=== PATIENT | female | born 1965 | race Caucasian/White ===

== ENCOUNTER 2017-10-22 05:49 | Inpatient (IN) | payer BC, MEDICAID ==
[~2017-10-22 05:49] MED LIST: Buffered Lidocaine 0.9% SYRIN* 5 ML/SYR SYRINGE INTRADERM ONE
[2017-10-22] MEDS ORDERED: Famotidine IV* 10 MG/ML 2 ML (20 mg) IV ONE (06:00)
[2017-10-22] MEDS ORDERED: Dexamethasone IV* 4 MG/ML 1 ML (4 MG) IV SLOW PU ONE (06:00)
[2017-10-22] MEDS ORDERED: Buffered Lidocaine 0.9% SYRIN* 5 ML/SYR SYRINGE ONE (06:12)
[2017-10-22] MEDS ORDERED: Famotidine IV* 10 MG/ML 2 ML (20 mg) ONE (06:12)
[2017-10-22] MEDS ORDERED: Dexamethasone IV* 4 MG/ML 1 ML (4 MG) ONE (06:12)
[2017-10-22] MEDS ORDERED: ceFAZolin 2 GM PREMIX (*) 2 GM/50 ML BAG IVPB ONE (06:12)
[2017-10-22] MEDS ORDERED: Thrombin 5,000 UNITS* 1 APPLIC KIT - topical use - TOPICAL ONE (07:10)
[2017-10-22] MEDS ORDERED: Bacitracin IV* 50,000 UNITS INJ ONE (07:10)
[2017-10-22] MEDS ORDERED: Lidocain 1% EPI 1:100,000 * 30 ML MDV ONE (07:10)
[2017-10-22] MEDS ORDERED: Levalbuterol 0.63MG/3ML NEB* UNIT OF USE INH ONE (07:24)
[2017-10-22] MEDS ORDERED: Levalbuterol 0.63MG/3ML NEB* UNIT OF USE INH PRN (07:24)
[2017-10-22] MEDS ORDERED: fentaNYL* 50 MCG/ML 5 ML VIAL (250 MCG VIAL) ONE (07:28)
[2017-10-22] MEDS ORDERED: Midazolam* 1 MG/ML 5 ML VIAL (5 MG) ONE (07:28)
[2017-10-22] MEDS ORDERED: Atracurium* 10 MG/ML 10 ML VIAL ONE (07:28)
[2017-10-22] MEDS ORDERED: Ondansetron INJ* 2 MG/ML VIAL ONE (07:29)
[2017-10-22] MEDS ORDERED: Propofol* 10 MG/ML 20 ML BTL IV PUSH ONE (07:29)
[2017-10-22] MEDS ORDERED: Lidocaine 2% PF * 5 ML VIAL ONE (07:29)
[2017-10-22] MEDS ORDERED: fentaNYL* 50 MCG/ML 2 ML VIAL (100 MCG VIAL) ONE (08:07)
[2017-10-22] MEDS ORDERED: EPHEDrine (Pressors)* 50 MG/ML VIAL ONE (08:14)
[2017-10-22] MEDS ORDERED: DiMENhydriNATE IV* 50 MG/ML VIAL IV PUSH PRN (08:15)
[2017-10-22] MEDS ORDERED: Naloxone* 0.4 MG/ML 1 ML VIAL IV PRN (08:15)
[2017-10-22] MEDS ORDERED: Ondansetron INJ* 2 MG/ML VIAL IV PRN (08:15)
[2017-10-22] MEDS ORDERED: HYDROmorphone INJ* 0.5 MG/0.5 ML SYRINGE IV PRN (08:15)
[2017-10-22] MEDS ORDERED: fentaNYL* 50 MCG/ML 2 ML VIAL (100 MCG VIAL) IV PRN (08:15)
[2017-10-22] MEDS ORDERED: Acetaminophen TAB* 325 MG PO PRN (09:19)
[2017-10-22] MEDS ORDERED: Magnesium Hydroxide LIQ* 30 ML UDC PO PRN (09:19)
[2017-10-22] MEDS ORDERED: Insulin LISPRO* 1 UNITS UNIT SUBCUT ONE ×2 (09:51→09:55)
[2017-10-22] MEDS ORDERED: Dextrose 50% Syringe 50 ML* 25 GM/50 ML SYRINGE IV PUSH PRN (09:51)
--- NOTE | 2017-10-22 10:58 | RAD ---
HISTORY: ANTERIOR CERVICAL DISCECTOMY AND FUSION WITH INSTR COMPARISONS: MRI dated July 15, 2017 VIEWS: 2, portable lateral intraoperative views of the cervical spine at 8:00 AM and 8:15 AM for localization during spinal surgery FINDINGS: Limited portable lateral views of the cervical spine are submitted for review. The first film at 8:00 AM demonstrates a metallic probe opposite of C5-C6 counting from C2. A second film at 8:13 AM demonstrates a needle within the C3-C4 intervertebral disc space. IMPRESSION: LIMITED PORTABLE VIEWS OF THE CERVICAL SPINE FOR LOCALIZATION DURING SPINAL SURGERY.
[2017-10-22] MEDS: HYDROcodone/ACETAMIN 5-325 MG* 1 TAB PO PRN ×2 (13:13→17:35)
[2017-10-22] MEDS: Insulin LISPRO* 1 UNITS UNIT SUBCUT SCH ×3 (13:14→21:00)
[2017-10-22] MEDS: Ezetimibe TAB* 10 MG PO SCH (17:34)
[2017-10-22] MEDS: Atorvastatin* 40 MG TAB PO SCH (17:34)
[2017-10-22] MEDS ORDERED: Insulin GLARGINE(*) 1 UNITS UNIT SUBCUT SCH ×2 (21:00)
[2017-10-22] MEDS: Spironolactone TAB* 25 MG PO SCH (21:03)
--- NOTE | 2017-10-22 21:44 | CONS ---
CONSULTATION REPORT: DATE OF CONSULT: 10/22/17 PROVIDER: Matty Osullivan NP ATTENDING PHYSICIAN: Dr. Navarrete (report dictated by Matty Osullivan NP). REFERRING PHYSICIAN: Dr. Mattson. PRIMARY CARE PROVIDER: Dr. Latanya Jarvis. REASON FOR CONSULT: Co-medical management. HISTORY OF PRESENT ILLNESS: Ms. Chester is a 52-year-old female who underwent elective anterior cervical diskectomy and fusion at C5-C6 today with Dr. Mattson secondary to radiculopathy. Hospital Medicine was asked to co-medical manage. The patient was seen and evaluated at her bedside and which she is sitting up in bed, alert and oriented x3, in no acute distress, talking on the telephone. She reports that she is a little sore from the surgery, but otherwise she is doing well and has very little pain. She denies difficulty swallowing. No shortness of breath, chest pain. Denies nausea, vomiting. Reports good appetite. Overall, she feels that she is doing well postoperatively. PAST MEDICAL HISTORY: Insulin-dependent type 2 diabetes; hypertension; COPD; sleep apnea; anxiety; history of ovarian cancer, status post hysterectomy; degenerative disk disease; hypothyroidism; hyperlipidemia; history of coronary artery disease. CURRENT MEDICATIONS: 1. Acetaminophen 650 mg p.o. q.4 hours p.r.n. 2. Lipitor 40 mg p.o. q.p.m. 3. Zetia 10 mg p.o. q.p.m. 4. [place] 5/325 mg 2 tabs p.o. q.4 hours p.r.n. 5. Lispro sliding scale a.c. and h.s. 6. LR 75 mL an hour IV. 7. Synthroid 75 mcg p.o. daily. 8. Milk of magnesia 30 mL p.o. daily p.r.n. 9. Dulera 200/5 MDI 2 puffs INH q.a.m. 10. Bystolic 10 mg p.o. q.a.m. 11. Zoloft 200 mg p.o. q.a.m. 12. Aldactone 100 mg p.o. b.i.d. ALLERGIES: COCONUT, SULFA ANTIBIOTICS. FAMILY HISTORY: Reviewed and noncontributory. SOCIAL HISTORY: The patient denies tobacco or alcohol use. She lists Jay Chester, her , as her healthcare proxy, . She lives with her in their own home. REVIEW OF SYSTEMS: A 14-point review of systems was performed. All the pertinent positives and negatives are mentioned in the history of present illness. Otherwise are negative. PHYSICAL EXAM: Vital Signs: Temperature 97.1, heart rate 92, respirations 18, pulse oximetry 97% on room air, blood pressure 135/78. General Appearance: A 52- year-old obese female, sitting up in bed, alert and oriented x3, in no acute distress. HEENT: Head is normocephalic and atraumatic. Pupils are equal and reactive to light. Oropharynx is clear. Moist mucous membranes. Neck is supple. The patient has an anterior neck clean, dry and intact dressing. No noted drainage, erythema. Mild tenderness around the incision site. Soft. Cardiac: S1, S2. Regular rate and rhythm. No murmur, rub, or gallop appreciated. No lower extremity edema noted. Lungs are clear to auscultation bilaterally with good aeration throughout. Abdomen: Soft, nontender, nondistended, obese. Normal bowel sounds throughout. Extremities: Moves all extremities. No clubbing, cyanosis, or edema. Neuro: Cranial nerves II through XII are grossly intact. No noted focal deficits. ASSESSMENT AND PLAN: Ms. Chester is a 52-year-old female with a past medical history of insulin-dependent type 2 diabetes, hypertension, obesity, hyperlipidemia, hypothyroidism, sleep apnea, chronic obstructive pulmonary disease, anxiety, who underwent an elective anterior cervical diskectomy and fusion today with Dr. Mattson. [facility] was asked to co-medical manage. 1. Anterior cervical diskectomy and fusion. Disposition per neurosurgical team. The patient appears to be doing well postoperatively at this time. The patient had a successful surgery without any complications. Pain management. Per the patient, she thinks she may go home tomorrow. 2. Insulin-dependent type 2 diabetes. The patient's blood sugars are quite high in the 200 and 300 range. She has been started on a lispro sliding scale. We will add on long acting insulin as she takes 70 units q.p.m. of Levemir. We will cut her to 35 units postop day 0 and we will most likely start her back on her full home dosage tomorrow. 3. Chronic obstructive pulmonary disease, appears to be stable without any exacerbation. Continue Advair. 4. Hypertension, controlled. Continue home medications, spironolactone and Bystolic. 5. Hyperlipidemia. Continue statin and Zetia. 6. Hypothyroidism. Continue Synthroid. 7. History of coronary artery disease. Asymptomatic at this time. Continue to hold aspirin and Plavix, resuming when cleared by Neurosurgery. 8. DVT prophylaxis: SCDs. 9. Code status: Full code. 10. Hospital status: Inpatient. TIME SPENT: Approximately 45 minutes were spent on this consultation. MATTY OSLULIVAN, SAFETY BELT INSTALLER [id number]/[facility] #: [id number] MAURICE
[2017-10-23] MEDS: Levothyroxine TAB* 75 MCG TAB PO SCH (05:55)
--- NOTE | 2017-10-23 07:27 | PN ---
Progress Note - Progress Note Date of Service: 10/23/17 SOAP: Subjective: []Doing well Pre op arm pain improving Minimal output from drain Objective: []Neck soft Neuro intact Assessment: []Satis post op course Plan: []D/C today D/C Instructions given
[2017-10-23] MEDS: Sertraline* 100 MG TAB PO SCH (08:51)
[2017-10-23] MEDS: Spironolactone TAB* 25 MG PO SCH ×2 (08:52→22:06)
[2017-10-23] MEDS: NEBIVOLOL 2.5 MG PO SCH ×2 (08:52→09:09)
[2017-10-23] MEDS: Insulin LISPRO* 1 UNITS UNIT SUBCUT SCH ×4 (08:52→22:11)
[2017-10-23] MEDS: Mometasone/Formoter 200/5 MDI INH SCH (09:09)
--- NOTE | 2017-10-23 09:56 | RAD ---
Indication: Postoperative bleeding, status post fusion of C5-6. CT of the cervical spine was obtained in the axial plane. Sagittal and coronal reconstructed images were obtained. The skull base demonstrates no fracture. There has been fusion of C5-6 with anterior plate and intervertebral disc spacer. There is spinal stenosis at C5-6. Bilateral foraminal stenosis due to uncovertebral joint hypertrophy is noted, worse on the right than on the left. A drainage catheter appears in place. No evidence of perivertebral hematoma is noted. Disc space narrowing at C2-3 is noted. Spondylitic ridge is noted at C2-3. At C7-T1, no disc protrusion is noted. IMPRESSION: Postoperative changes at C5-6 with anterior plate and intervertebral disc spacer. Persistent spinal stenosis is noted at C5-6. This is due to osteophyte formation. No evidence of paravertebral hematoma is noted.
[2017-10-23 10:15] LABS: ABS Basophils 0.2 10^3/ul (0-0.2); ABS Eosinophils 0.1 10^3/ul (0-0.6); ABS Lymphocytes 3.4 10^3/ul (1.0-4.8); ABS Monocytes 0.6 10^3/ul (0-0.8); ABS Neutrophils 14.2 10^3/ul (1.5-7.7); ABS Nucleated RBC 0 10^3/ul; Eosinophil % 0.3 % (0-6); Hematocrit 41 % (35-47); Hemoglobin 13.3 g/dl (12.0-16.0); Lymphocyte % 18.3 % (25-47); Mean Corpuscular HGB Conc 33 g/dl (31-36); Mean Corpuscular Hemoglobin 29 pg (27-31); Mean Corpuscular Volume 90 fL (80-97); Mean Platelet Volume 7.4 um3 (7.4-10.4); Nucleated Red Blood Cells % 0; Platelet Count 391 10^3/ul (150-450); Red Blood Count 4.52 10^6/ul (4.00-5.40); Red Cell Distribution Width 16 % (10.5-15); White Blood Count 18.3 10^3/ul (3.5-10.8)
--- NOTE | 2017-10-23 12:04 | PN ---
Progress Note - Progress Note Date of Service: 10/23/17 SOAP: Subjective: [S/p ACD F C5-6, POD #1. Feeling well. Preop left thumb numbness improving. Neck pain controlled with PO pain medications. Attempted to dc drain this morning. Upon removal of dressing, large blood clot present at incision and active bleeding from incision site. Most steri strips removed due to saturation with blood. Dressing replaced. Rechecked wound at 1200, dressing again with blood and incision bleeding. Wound drain left in place. Patient ambulating well. Eating and drinking without difficulty. Denies chills, headache, lightheadedness. ] Objective: [ Vital Signs: Temp Pulse Resp BP Pulse Ox 98.1 F 84 17 147/86 97 10/23/17 11:21 10/23/17 11:21 10/23/17 11:21 10/23/17 11:21 10/23/17 11:21 General: Alert and no distress. Neuro: Decreased sensation to C6 distribution. Motor normal. Incision: Mild amount bleeding from incision, dressing saturated and replaced. Wound drain in place and functioning well. Wound drain output 10/22/17 10/22/17 10/22/17 13:24 17:36 23:26 Output, GENET #1 10 20 10 10/23/17 10/23/17 04:16 05:28 Output, GENET #1 3 0 WBC 18.3 ] Assessment: [Stable post-op. WBC 18.3, chronic leukocytosis.] Plan: [1. Admit to inpatient for further monitoring of wound and drain output. 2. Transfuse 2 units platelets. 3. Continue pain management. 4. Encourage up out of bed and ambulation.]
--- NOTE | 2017-10-23 13:06 | PN ---
Subjective Date of Service: 10/23/17 Interval History: . called by nurse at 1630 with concern of high blood pressure reading with flushed face. Pt reports she was having a hot flash which is very common for her. She deneis CP/SOB. She now feels better. Overall she feels that she is doing well. She denies pain. Objective Active Medications: Acetaminophen (Tylenol Tab*) 650 mg PO Q4H PRN PRN Reason: PAIN Hydrocodone Bitart/Acetaminophen ([place] 5-325 Tab*) 2 tab PO Q4H PRN PRN Reason: marked pain Last Admin: 10/22/17 17:35 Dose: 2 tab Atorvastatin Calcium (Lipitor*) 40 mg PO QPM [facility] Last Admin: 10/22/17 17:34 Dose: 40 mg Dextrose (D50w Syringe 50 Ml*) 12.5 gm IV PUSH .FOR FS < 60 - SS PRN PRN Reason: FS < 60 Ezetimibe (Zetia Tab*) 10 mg PO QPM [facility] Last Admin: 10/22/17 17:34 Dose: 10 mg Lactated Ringer's (Lactated Ringers 1000 Ml Bag*) 1,000 mls @ 75 mls/hr IV .per rate [facility] Insulin Glargine (Lantus(*)) 35 units SUBCUT Q24H [facility] Last Admin: 10/22/17 21:02 Dose: 35 units Insulin Human Lispro (Humalog*) 0 units SUBCUT ACHS [facility]; Protocol Last Admin: 10/23/17 12:48 Dose: 9 unit Levothyroxine Sodium (Synthroid Tab*) 75 mcg PO 0600 [facility] Last Admin: 10/23/17 05:55 Dose: 75 mcg Magnesium Hydroxide (Milk Of Magnesia Liq*) 30 ml PO DAILY PRN PRN Reason: CONSTIPATION Mometasone Furoate/Formoterol Fumar (Dulera 200/5 Mdi*) 2 puff INH QAM [facility] Last Admin: 10/23/17 09:09 Dose: 2 puff Nebivolol (Bystolic Tab (Nf)) 10 mg PO QAM [facility] Last Admin: 10/23/17 09:09 Dose: 10 mg Sertraline HCl (Zoloft*) 200 mg PO QAM [facility] Last Admin: 10/23/17 08:51 Dose: 200 mg Spironolactone (Aldactone Tab*) 100 mg PO BID [facility] Last Admin: 10/23/17 08:52 Dose: 100 mg Vital Signs - 8 hr 10/23/17 10/23/17 10/23/17 07:41 08:00 11:21 Temperature 98.0 F 98.1 F Pulse Rate 84 84 Respiratory 17 17 17 Rate Blood Pressure 163/93 147/86 (mmHg) O2 Sat by Pulse 93 93 97 Oximetry Oxygen Devices in Use Now: None Appearance: 52 yo female patient A+O x3 in NAD Eyes: No Scleral Icterus, PERRLA Neck: Trachea Midline, - - anterior dressing CD+I with drain (draining serosangeous fluid) Cardiovascular: NL Sounds; No Murmurs; No JVD, RRR, No Edema Abdominal: NL Sounds; No Tenderness; No Distention Extremities: No Edema, No Clubbing, Cyanosis Skin: No Rash or Ulcers, No Nodules or Sclerosis Neurological: Alert and Oriented x 3, NL Sensation, NL Muscle Strength and Tone Lines/Tubes/Other Access: Clean, Dry and Intact Peripheral IV, Clean, Dry and Intact Other Access - GENET drain Nutrition: Taking PO's Result Diagrams: 10/23/17 09:57 Assess/Plan/Problems-Billing Assessment: 52 yo female with PMH of HTN, diabetes who underwent elective cervical fusion - Patient Problems (1) S/P cervical spinal fusion Comment: POD #1 Dispo per NS - Per NS plan to keep drain in place, continue to watch output and giving 2 units platelets. (2) Hypertension Comment: Hypertensive - PRN Hydralazine Continue Bystolic (3) CAD (coronary artery disease) Comment: No evidence of ACS Hold ASA and plavix (4) CKD (chronic kidney disease) Comment: Stage III Cr near baseline on pre-op lbas check creatinine in am (5) Hyperlipidemia Comment: - continue statin (6) Hypothyroidism Comment: - continue synthroid (7) IDDM (insulin dependent diabetes mellitus) Comment: Continue Lispro AC+HS with Lispro SS Increase Lantus to 70 units (home dose Levemir 70 units) (8) DVT prophylaxis Status and Disposition: Inpatient Dispo per NS.
[2017-10-23] MEDS ORDERED: hydrALAZINE IV* 20 MG/ML VIAL IV SLOW PU ONE (16:30)
[2017-10-23] MEDS ORDERED: hydrALAZINE IV* 20 MG/ML VIAL IV SLOW PU PRN (17:30)
[2017-10-23] MEDS: Atorvastatin* 40 MG TAB PO SCH (17:35)
[2017-10-23] MEDS: Ezetimibe TAB* 10 MG PO SCH (17:35)
[2017-10-23] MEDS: HYDROcodone/ACETAMIN 5-325 MG* 1 TAB PO PRN (20:04)
[2017-10-23] MEDS ORDERED: Insulin GLARGINE(*) 1 UNITS UNIT SUBCUT SCH ×2 (21:00)
[2017-10-23 23:54] LABS: Mean Platelet Volume 7.5 um3 (7.4-10.4); Platelet Count 437 10^3/ul (150-450)
[2017-10-24 05:27] LABS: ABS Basophils 0.3 10^3/ul (0-0.2); ABS Eosinophils 0.3 10^3/ul (0-0.6); ABS Monocytes 0.7 10^3/ul (0-0.8); ABS Neutrophils 13.8 10^3/ul (1.5-7.7); ABS Nucleated RBC 0 10^3/ul; Eosinophil % 1.4 % (0-6); Hematocrit 40 % (35-47); Hemoglobin 13.1 g/dl (12.0-16.0); Mean Corpuscular HGB Conc 33 g/dl (31-36); Mean Corpuscular Hemoglobin 29 pg (27-31); Mean Corpuscular Volume 90 fL (80-97); Mean Platelet Volume 7.5 um3 (7.4-10.4); Nucleated Red Blood Cells % 0; Platelet Count 400 10^3/ul (150-450); Red Blood Count 4.51 10^6/ul (4.00-5.40); Red Cell Distribution Width 16 % (10.5-15)
[2017-10-24 05:43] LABS: EGFR Non-African American 57.1 (>60)
[2017-10-24] MEDS: Levothyroxine TAB* 75 MCG TAB PO SCH (05:56)
[2017-10-24] MEDS ORDERED: Magnesium Sulfate IV* 2 GM in NS 0.9% 100 ML* 100 ML IV ONE (08:33)
[2017-10-24] MEDS: Insulin LISPRO* 1 UNITS UNIT SUBCUT SCH ×2 (08:56→12:47)
[2017-10-24] MEDS: Mometasone/Formoter 200/5 MDI INH SCH (08:56)
[2017-10-24] MEDS: NEBIVOLOL 2.5 MG PO SCH (08:56)
[2017-10-24] MEDS: Sertraline* 100 MG TAB PO SCH (08:56)
[2017-10-24] MEDS: Spironolactone TAB* 25 MG PO SCH (09:06)
[2017-10-24] MEDS ORDERED: Furosemide IV* 10 MG/ML 2 ML VIAL (20 MG) IV ONE (09:06)
--- NOTE | 2017-10-24 11:47 | PN ---
Progress Note - Progress Note Date of Service: 10/24/17 SOAP: Subjective: [S/p ACD F C5-6, POD #2. Feeling well this morning. Ambulating independently. Eating and drinking without difficulty. Has not needed pain medication. Pre-op LUE symptoms improving. ] Objective: [ Vital Signs: Temp Pulse Resp BP Pulse Ox 97.9 F 72 18 167/96 95 10/24/17 07:20 10/24/17 07:20 10/24/17 07:35 10/24/17 07:20 10/24/17 07:35 General: Alert and no distress. Neuro: C6 distribution sensation diminished. Motor normal. Incision: Intact with suture and steri strips replaced today. Dressing changed, no bleeding. Wound drain discontinued. ] Assessment: [Stable post-op. ] Plan: [1. Discharge home today. 2. Discharge instructions discussed with the patient. 3. Restart Plavix and ASA 7/14.]
[2017-10-24 12:13] VITALS: BP 141/90
--- NOTE | 2017-11-28 23:11 | DS ---
DISCHARGE SUMMARY: DATE OF ADMISSION: 10/22/17 DATE OF DISCHARGE: 10/24/17 ATTENDING PHYSICIAN: Dr. Mattson* (dictated by HALEY Mazariegos). DISCHARGE DIAGNOSES: 1. Cervical disk disease C5-6. 2. Chronic obstructive pulmonary disease. 3. Hypertension. 4. Coronary artery disease. 5. Diabetes. 6. Hypothyroidism. 7. Obstructive sleep apnea. SPECIAL PROCEDURES: Anterior cervical discectomy and fusion C5-6. HOSPITAL COURSE: This is a 52-year-old female, who was seen in the office with cervical radiculopathy consistent with cervical disk disease at C5-6. She failed to improve over several weeks of conservative treatments including therapy, cervical traction, medication, and rest. She, therefore, elected for surgical intervention. On the day of admission, she was taken to surgery where under general anesthesia, an anterior cervical discectomy and fusion at C5-6 operation was carried out. Postoperatively, she was feeling well. The preoperative left upper extremity symptoms were improving. Hospitalist was consulted for medical comanagement of her other health issues. Prior to surgery she had undergone primary care and cardiac clearance. She had needed to hold her Plavix. On the first postoperative day, she was feeling well and the wound drain had slowed. When the wound drain was going to be discontinued, was a large blood clot at the surface of the skin near the wound drain and surgical wound. When this was removed the incision continued to bleed, likely related to the patient's anticoagulation. She was therefore transfused with 1 unit of platelets and remained admitted for another day. She denied lightheadedness, dizziness, headache, fever, or chills. Pain was well controlled with oral pain medications. On the second postoperative day, the bleeding had stopped and the drain was able to be discontinued. She was discharged on the second postoperative day. She will be seen in the office in approximately 2 weeks. Discharge instructions including wound care and activity level were discussed with the patient and information on this was provided. DISCHARGE MEDICATIONS: 1. [place] 5/325 mg 1 to 2 tabs by mouth every 4 hours as needed for pain. 2. She was also instructed to restart the Plavix and aspirin on 10/26/17 and followup with her PCP to review her home medications. HALEY MAZARIEGOS [id number]/[facility] #: [id number] [place]URICE
--- NOTE | 2017-12-11 20:35 | OP ---
DATE OF OPERATION: 10/22/17 - ROOM #334 DATE OF : 67 SURGEON: Efren Mattson MD WAFER FABRICATOR: HALEY Valera ANESTHESIA: General. PRE-OP DIAGNOSIS: Herniated nucleus pulposus, C5-C6, on the left. POST-OP DIAGNOSIS: Herniated nucleus pulposus, C5-C6, on the left. OPERATIVE PROCEDURE: Anterior cervical diskectomy and allograft fusion, C5-C6, with anterior instrumentation. DESCRIPTION OF PROCEDURE: After satisfactory general anesthesia was obtained, the patient was placed on the operating room table in the supine position with the head supported on the horseshoe head rest and the neck slightly extended. The anterior aspect of the cervical spine was clipped, prepped, and draped for anterior cervical exposure and a skin incision was outlined over the C5-C6 interspace as assisted with a industrial equipment mechanic radiograph. This incision was begun at the midline and extended to the right side at a distance of 3 cm. This incision was infiltrated with 1% Xylocaine with epinephrine after which it was turned down sharply to the subcutaneous tissues. A superior and inferior base subcutaneous flap was then fashioned and the platysma muscle was divided along the direction of its fibers. Utilizing a combination of sharp and blunt dissection, a dissection plane was performed between the sternocleidomastoid and strap muscles down to the anterior aspect of the spine. An intraoperative x -ray was obtained verifying proper interspace localization after which a diskectomy was performed at C5-C6. The initial step in the decompression was removal of the anterior two-thirds of disk material using a combination of Midas Rojelio drill, angle curettes, and pituitary rongeurs. Jayy distraction pins were then placed in the C5 and C6 vertebral bodies and gentle disk space distraction applied. The operating microscope was then brought into the field and the remainder of the procedure was done under microscopic visualization. Projecting back posterior, this level was a herniated disk projecting out more towards the left side. There was also a component of spur formation with both the spur and disk being removed with the combination of the Midas Rojelio drill and Kerrison rongeurs. The dissection was carried back posterior until a normal dura was encountered. At the conclusion of the decompression, a nerve hook would go out readily with both nerve roots. The interspace was then prepared for receipt of a 7-mm bone graft filled with bone and matrix and slightly countersunk. A [employer] Zevo plate was then selected to span from C5 to C6 and was secured into position with 13-mm self-drilling screws. After assuring adequate hemostasis, the wound was thoroughly irrigated after which a drain was placed in the prevertebral space and tunneled out towards the right side. The subcutaneous tissue was then reapproximated with 3-0 Vicryl suture and the skin closed with Steri-Strips. The estimated blood loss was less than 50 cc. The final sponge, padding, and needle counts were correct. The patient was taken to the recovery room, extubated, and in stable condition. [id number]/[facility] #: [id number] MTDD
== END 2017-10-24 12:55 | disposition home or self-care (01) | DRG 23 ==
LOC: OR 05:49 → SSU 09:19 → OBSVTOIN 12:12
PROVIDERS: ADMIT Neurological Surgery; ATTEND Neurological Surgery
PROC: 0RG10K0 Fusion of Cervical Vertebral Joint with Nonautologous Tissue Substitute, Anterior Approach, Anterior Column, Open Approach (ICD-10-PCS; 2017-10-22)
PROC: 0RB30ZZ Excision of Cervical Vertebral Disc, Open Approach (ICD-10-PCS; 2017-10-22)
PROC: 30233R1 Transfusion of Nonautologous Platelets into Peripheral Vein, Percutaneous Approach (ICD-10-PCS; principal; 2017-10-23)
DX: M50.122 Cervical disc disorder at C5-C6 level with radiculopathy (principal); Z68.41 Body mass index [BMI] 40.0-44.9, adult; J44.9 Chronic obstructive pulmonary disease, unspecified; F41.9 Anxiety disorder, unspecified; E03.9 Hypothyroidism, unspecified; E78.5 Hyperlipidemia, unspecified; I25.10 Atherosclerotic heart disease of native coronary artery without angina pectoris; E66.9 Obesity, unspecified; D72.829 Elevated white blood cell count, unspecified; N18.3 Chronic kidney disease, stage 3 (moderate); G47.33 Obstructive sleep apnea (adult) (pediatric); M46.02 Spinal enthesopathy, cervical region; I12.9 Hypertensive chronic kidney disease with stage 1 through stage 4 chronic kidney disease, or unspecified chronic kidney disease; E11.22 Type 2 diabetes mellitus with diabetic chronic kidney disease; Z85.43 Personal history of malignant neoplasm of ovary; Z90.710 Acquired absence of both cervix and uterus; Z91.018 Allergy to other foods; Z88.2 Allergy status to sulfonamides
CPT/HCPCS: 36415; 72020; 72125; 80048; 83735; 85025; 85049; 86900; 86901; A9270-GY; C1713; C1776; J0360; J0690; J1100; J1940; J2250; J2405; J2704; J3010; J3475; P9035